=== PATIENT | male | born 1960 | race Caucasian/White ===

== ENCOUNTER 2017-04-29 07:30 | Emergency (ER) | payer BC ==
[~2017-04-29] VITALS: Ht 160 cm; Wt 66.2 kg
[~2017-04-29 07:30] MED LIST: AUG875 PO
[2017-04-29 07:32] VITALS: Ht 160 cm; Wt 66.2 kg
--- NOTE | 2017-04-29 09:10 | ERD ---
ER Documentation Chief Complaint Chief Complaint NECK PAIN X 1 WEEK , NO TRAUMA , NAUSEA, DIZZINESS SINCE YESTERDAY HPI This is a 57-year-old male presents to the ER complaining of dizziness that started yesterday. Patient states that whenever he lays down and states that dizziness gets worse. Dizziness lasts about 5 minutes and is described as spinning sensation. Patient denies any fevers or chills. He does admit to nausea and vomiting. Vomiting is nonbilious nonbloody. Patient denies any headaches, vision loss, vision changes. He does complain of left-sided neck pain. He denies any trauma to the neck. Patient denies any chest pain, palpitations, shortness of breath. He denies any blood in his stools. She denies any recent URI symptoms. ROS 12 point review of systems was done, all negative except per HPI. Medications Home Meds Active Scripts Ondansetron Hcl* (Zofran*) 4 Mg Tab, 4 MG PO Q4H Y for NAUSEA AND OR VOMITING for 3 Days, TAB Prov:NAYELI PHIPPS 04/29/17 Meclizine Hcl* (Meclizine Hcl*) 25 Mg Tablet, 25 MG PO Q8H Y for DIZZINESS for 3 Days, TAB Prov:NAYELI PHIPPS 04/29/17 Amoxicillin-Clavulanate K* (Augmentin*) 875 Mg Tab, 875 MG PO BID for 7 Days, TAB Prov:KALE JAMA PA-C 03/17/15 Reported Medications [None] No Conflict Check 10/23/09 Allergies Allergies: Coded Allergies: No Known Drug Allergies (Verified Allergy, Mild, 10/23/09) PMhx/Soc Medical and Surgical Hx: pt denies Medical Hx, pt denies Surgical Hx History of Surgery: No Anesthesia Reaction: No Hx Neurological Disorder: No Hx Respiratory Disorders: No Hx Cardiac Disorders: No Hx Psychiatric Problems: No Hx Miscellaneous Medical Probl: No Hx Alcohol Use: Yes ( SOCIALLY) Hx Substance Use: No Hx Tobacco Use: No Smoking Status: Never smoker Physical Exam Vitals Vital Signs Date Time Temp Pulse Resp B/P Pulse Ox O2 Delivery O2 Flow Rate FiO2 04/29/17 07:32 97.5 75 18 142/91 100 Physical Exam GENERAL: The patient is well developed and appropriate for usual state of health , in no apparent distress. HEENT: Atraumatic. Conjunctivae are pink. Pupils equal, round, and reactive to light. Extraocular muscles are grossly intact. No nystagmus. Bilateral tympanic membranes are clear with no evidence of erythema, bulging or perforation. NECK: C-spine is soft and supple. There is no cervical lymphadenopathy. ttp to the left trapezius muscle. CHEST: Clear to auscultation bilaterally. There are no rales, wheezes or rhonchi. HEART: Regular rate and rhythm. No murmurs, clicks, rubs or gallops. EXTREMITIES: Equal pulses bilaterally. There is no peripheral clubbing, cyanosis or edema. No focal swelling or erythema. Full range of motion. Grossly neurovascularly intact. NEURO: Alert and oriented. Cranial nerves II through XII are intact. Motor strength in all 4 extremities with 5/5 strength. Sensation grossly intact. Normal speech and gait. Negative Rhomberg. +2 DTRs. SKIN: There is no apparent rash or petechia. The skin is warm and dry. Result Diagram: 04/29/17 0833 04/29/17 0833 Results 24 hrs Laboratory Tests Test 04/29/17 08:33 White Blood Count 6.910^3/ul Red Blood Count 5.0110^6/ul Hemoglobin 15.3g/dl Hematocrit 44.6% Mean Corpuscular Volume 89.0fl Mean Corpuscular Hemoglobin 30.5pg Mean Corpuscular Hemoglobin Concent 34.3g/dl Red Cell Distribution Width 11.2% Platelet Count 20285^3/UL Mean Platelet Volume 10.9fl Neutrophils % 59.0% Lymphocytes % 31.0% Monocytes % 7.2% Eosinophils % 1.9% Basophils % 0.6% Nucleated Red Blood Cells % 0.0/100WBC Neutrophils # 4.110^3/ul Lymphocytes # 2.110^3/ul Monocytes # 0.510^3/ul Eosinophils # 0.110^3/ul Basophils # 0.010^3/ul Nucleated Red Blood Cells # 0.010^3/ul Urine Color YELLOW Urine Clarity CLEAR Urine pH 6.0 Urine Specific [place] 1.018 Urine Ketones NEGATIVEmg/dL Urine Nitrite NEGATIVEmg/dL Urine Bilirubin NEGATIVEmg/dL Urine Urobilinogen NEGATIVEmg/dL Urine Leukocyte Esterase NEGATIVELeu/ul Urine Hemoglobin NEGATIVEmg/dL Urine Glucose NEGATIVEmg/dL Urine Total Protein NEGATIVEmg/dl Sodium Level 143mmol/L Potassium Level 4.0mmol/L Chloride Level 103mmol/L Carbon Dioxide Level 27mmol/L Anion Gap 17 Blood Urea Nitrogen 16mg/dl Creatinine 0.74mg/dl Glucose Level 127mg/dl Calcium Level 9.6mg/dl Total Bilirubin 0.7mg/dl Direct Bilirubin 0.00mg/dl Indirect Bilirubin 0.7mg/dl Aspartate Amino Transf (AST/SGOT) 35IU/L Alanine Aminotransferase (ALT/SGPT) 27IU/L Alkaline Phosphatase 92IU/L Troponin I < 0.012ng/ml Total Protein 8.0g/dl Albumin 4.7g/dl Globulin 3.30g/dl Albumin/Globulin Ratio 1.42 [place] [id number] Radiology Main Line: [phone] DIAGNOSTIC IMAGING REPORT Patient: SHAWN AG : 1960 Age: 57 Sex: M MR #: [id number] DOS: 04/29/17 0000 Ordering MD: NAYELI PHIPPS PA-C Location: [facility] Room/Bed: PROCEDURE: CT head without intravenous contrast CLINICAL INDICATION: Dizziness. Neck pain. COMPARISON: None relevant listed. TECHNIQUE: Axial CT images from skull base to vertex with coronal and sagittal reformats. DOSE: The estimated administered radiation dose was CTDI vol = 43.48 mGy. DLP = 720.23 mGy-cm. One or more of the following dose reduction techniques were used: automated exposure control, adjustment of the mA and/or kV according to patient size, or use of iterative reconstruction. DICOM images are available. FINDINGS: Parenchyma: No acute hemorrhage, large territorial infarction, or mass. Mild parenchymal volume loss. Physiologic calcifications present within the bilateral globus pallidus. Congenital variation samantha cisterna magna. Ventricles: No ventriculomegaly or ventricular effacement. Extra-axial spaces: No herniation or midline shift. Paranasal sinuses: Clear. Mastoids and middle ears: Clear. Visualized orbits: Normal. Vessels: No calcified atherosclerotic arterial plaque identified. Bones: Normal. Extracranial soft tissues: Normal. Additional comment: None. IMPRESSION: 1. No acute intracranial pathology. 2. Mild parenchymal volume loss. 3. Congenital variation tion samantha cisterna magna. RPTAT: HRSR Ananda Frausto, Physician Date Time Electronically viewed and signed by Physician Je on 04/29/2017 09 :26 RR/ CC: NAYELI PHIPPS [place] [id number] Radiology Main Line: [phone] DIAGNOSTIC IMAGING REPORT Patient: SHAWN AG : 1960 Age: 57 Sex: M MR #: [id number] DOS: 04/29/17 0000 Ordering MD: NAYELI PHIPPS. PA-C Location: [facility] Room/Bed: PROCEDURE: XR Cervical Spine. CLINICAL INDICATION: Neck pain. TECHNIQUE: AP, lateral and odontoid views of the cervical spine were performed. The images were reviewed on a PACS workstation. COMPARISON: None. FINDINGS: The vertebral body alignment, height and osseous mineralization are normal. Mild disc space loss C4-C5. There are no abnormal calcifications. The prevertebral soft tissues are normal. No radiopaque foreign bodies are identified. There is no acute fracture or subluxation. IMPRESSION: 1. No acute fracture or dislocation. 2. Mild disc space loss C4-C5. RPTAT: HRSR Physician Je Date Time Electronically viewed and signed by Physician Je on 04/29/2017 09 :27 RR/ CC: NAYELI PHIPPS Procedures/MDM Differential Diagnosis includes but is not limited to; Benign positional vertigo , labyrinthitis, vertigo, MS, acoustic neuroma, arrhythmia, anemia, hypoglycemia , infection, dehydration. EKG was done [address] elevation no T-wave inversion. This EKG was screened by Dr. Smith. At this time etiology of dizziness is unknown, however patient symptoms are likely vertigo as he does describe a spinning sensation. Suspicion for central cause of dizziness is low. Patient's physical examination is benign and there is no evidence of intracranial process going on. Suspicion for anemia, hypoglycemia, infection or dehydration is low. Patient's vital signs are stable, afebrile and extremely well-appearing. Patient will be sent home with meclizine and Zofran. Rest to patient's neck pain, patient was tender along the left trapezius muscle, this is likely muscular in nature. Suspicion for spinal cord injury is low. Patient has full and nonpainful range of motion of bilateral upper extremities with no weaknesses and he not have any evidence of neck stiffness or any meningeal signs. He Needs to follow-up with his primary care doctor within 1-2 days return to ER sooner if symptoms worsen. My medical decision making shared with the patient he understands and agrees with plan. Departure Diagnosis: Primary Impression: Dizziness Additional Impression: Neck pain Condition: Stable NAYELI PHIPPS Apr 29, 2017 09:10
[2017-04-29 09:14] LABS: BASOPHILS % 0.6 % (0.0-2.0); EOSINOPHILS # 0.1 10^3/ul (0.0-0.5); EOSINOPHILS % 1.9 % (0.0-7.0); HEMATOCRIT 44.6 % (42.0-52.0); HEMOGLOBIN 15.3 g/dl (14.0-18.0); LYMPHOCYTES # 2.1 10^3/ul (0.8-2.9); MEAN CORPUSCULAR HEMOGLOBIN 30.5 pg (29.0-33.0); MEAN CORPUSCULAR HGB CONC 34.3 g/dl (32.0-37.0); MEAN PLATELET VOLUME 10.9 fl (7.4-10.4); MONOCYTE # 0.5 10^3/ul (0.3-0.9); MONOCYTES % 7.2 % (0.0-11.0); NEUTROPHIL # 4.1 10^3/ul (1.6-7.5); PLATELET COUNT 206 10^3/UL (140-415); RED BLOOD COUNT 5.01 10^6/ul (4.70-6.10); RED CELL DISTRIBUTION WIDTH 11.2 % (11.5-14.5); WHITE BLOOD COUNT 6.9 10^3/ul (4.8-10.8)
--- NOTE | 2017-04-29 09:26 | RADRPT ---
PROCEDURE: CT head without intravenous contrast CLINICAL INDICATION: Dizziness. Neck pain. COMPARISON: None relevant listed. TECHNIQUE: Axial CT images from skull base to vertex with coronal and sagittal reformats. DOSE: The estimated administered radiation dose was CTDI vol = 43.48 mGy. DLP = 720.23 mGy-cm. One or more of the following dose reduction techniques were used: automated exposure control, adjustment of the mA and/or kV according to patient size, or use of iterative reconstruction. DICOM images are available. FINDINGS: Parenchyma: No acute hemorrhage, large territorial infarction, or mass. Mild parenchymal volume loss . Physiologic calcifications present within the bilateral globus pallidus. Congenital variation samantha cisterna magna. Ventricles: No ventriculomegaly or ventricular effacement. Extra-axial spaces: No herniation or midline shift. Paranasal sinuses: Clear. Mastoids and middle ears: Clear. Visualized orbits: Normal. Vessels: No calcified atherosclerotic arterial plaque identified. Bones: Normal. Extracranial soft tissues: Normal. Additional comment: None. IMPRESSION: 1. No acute intracranial pathology. 2. Mild parenchymal volume loss. 3. Congenital variation tion samantha cisterna magna. RPTAT: HRSR Physician Je Date Time Electronically viewed and signed by Physician Je on 04/29/2017 09:26 RR/
--- NOTE | 2017-04-29 09:28 | RADRPT ---
PROCEDURE: XR Cervical Spine. CLINICAL INDICATION: Neck pain. TECHNIQUE: AP, lateral and odontoid views of the cervical spine were performed. The images were re viewed on a PACS workstation. COMPARISON: None. FINDINGS: The vertebral body alignment, height and osseous mineralization are normal. Mild disc space loss C4-C5. There are no abnormal calcifications. The prevertebral soft tissues are normal. No radiopaque foreign bodies are identified. There is no acute fracture or subluxation. IMPRESSION: 1. No acute fracture or dislocation. 2. Mild disc space loss C4-C5. RPTAT: HRSR Physician Je Date Time Electronically viewed and signed by Physician Je on 04/29/2017 09:27 RR/
[2017-04-29 09:37] LABS: ADD UMIC NO; UR ASCORBIC ACID NEGATIVE (NEGATIVE); UR BILIRUBIN (Dip) NEGATIVE (NEGATIVE); UR BLOOD (Dip) NEGATIVE (NEGATIVE); UR CLARITY CLEAR (CLEAR); UR COLOR YELLOW (YELLOW); UR GLUCOSE (Dip) NEGATIVE (NEGATIVE); UR KETONES (Dip) NEGATIVE (NEGATIVE); UR LEUKOCYTE ESTERASE (Dip) NEGATIVE Leu/ul (NEGATIVE); UR NITRITE (Dip) NEGATIVE (NEGATIVE); UR SPECIFIC GRAVITY (Dip) 1.018 (1.003-1.030); UR TOTAL PROTEIN (Dip) NEGATIVE (NEGATIVE); UR UROBILINOGEN (Dip) NEGATIVE (NEGATIVE)
[2017-04-29 09:42] LABS: ALANINE AMINOTRANSFERASE 27 IU/L (13-69); ALBUMIN 4.7 g/dl (3.3-4.9); ALBUMIN/GLOBULIN RATIO 1.42; ALKALINE PHOSPHATASE 92 IU/L (42-121); ANION GAP 17 (8-16); ASPARTATE AMINO TRANSFERASE 35 IU/L (15-46); BILIRUBIN,INDIRECT 0.7 mg/dl (0-1.1); BILIRUBIN,TOTAL 0.7 mg/dl (0.2-1.3); BLOOD UREA NITROGEN 16 mg/dl (7-20); CALCIUM 9.6 mg/dl (8.4-10.2); CARBON DIOXIDE 27 mmol/L (21-31); CHLORIDE 103 mmol/L (97-110); CREATININE 0.74 mg/dl (0.61-1.24); GLUCOSE 127 mg/dl (70-220); SODIUM 143 mmol/L (135-144)
[2017-04-29 09:54] LABS: TROPONIN-I < 0.012 ng/ml (0.00-0.12)
[2017-04-29] MEDS ORDERED: MECL-77 PO (10:13)
[2017-04-29] MEDS ORDERED: ONDA-43 PO (10:14)
[2017-04-29 10:25] VITALS: BP 136/75; PULSE 77; RESP 19; TEMP 98.1
== END 2017-04-29 10:26 | disposition home or self-care (01) ==
LOC: FTE 07:30
DX: R42 Dizziness and giddiness (principal); M54.2 Cervicalgia
CPT/HCPCS: 36415; 70450; 72040; 80053; 81003; 84484; 85025; 93005